=== PATIENT | male | born 1985 ===

== ENCOUNTER 2017-05-03 13:37 | Emergency (ER) | payer OTHER ==
--- NOTE | 2017-05-03 14:20 | C.PDOC ---
History Of Present Illness 31 y/o male presents to ED for suture removal on left forearm s/p lipoma removal at medical clinic on 04/25/17. Patient states area has been mildly erythematous for 2 days. He denies fever, discharge, pain, bleeding. Time Seen by Provider: 05/03/17 13:46 Chief Complaint (Nursing): Suture/Staple Removal History Per: Patient History/Exam Limitations: no limitations Onset/Duration Of Symptoms: Days Ago Location Of Injury: Left: Forearm Severity: Mild Past Medical History Reviewed: Historical Data, Nursing Documentation, Vital Signs Vital Signs: Last Vital Signs Temp 97.7 F 05/03/17 14:25 Pulse 84 05/03/17 14:25 Resp 18 05/03/17 14:25 BP 136/93 H 05/03/17 14:25 Pulse Ox 98 05/03/17 16:20 - Medical History PMH: Asthma Family History: States: No Known Family Hx - Social History Hx Alcohol Use: Yes Hx Substance Use: No Review Of Systems Except As Marked, All Systems Reviewed And Found Negative. Constitutional: Negative for: Fever, Chills Gastrointestinal: Negative for: Nausea, Vomiting, Diarrhea Skin: Negative for: Rash Neurological: Negative for: Weakness, Numbness, Dizziness Physical Exam - Physical Exam Appears: Non-toxic, No Acute Distress Skin: Normal Color, Warm Head: Normacephalic Oral Mucosa: Moist Cardiovascular: Rhythm Regular Respiratory: Normal Breath Sounds, No Rales, No Rhonchi, No Wheezing Extremity: No Tenderness, Capillary Refill (<2 seconds all digits ), No Deformity, Other (Left forearm approx 4cm area with 5 intact sutures, mild surrounding erythema, no fluctuance or induration) Extremity: Bilateral: Atraumatic, Normal ROM Pulses: Left Dorsalis Pedis: Normal, Right Dorsalis Pedis: Normal Neurological/Psych: Oriented x3, Normal Sensation Gait: Steady ED Course And Treatment O2 Sat by Pulse Oximetry: 98 (RA) Pulse Ox Interpretation: Normal Progress Note: 4 peripheral sutures removed, central suture left in order to prevent wound dehiscence. patient given PO Keflex, and steristrip also applied. Patient instructed to return to ED in 48 hours for wound check and removal of final suture. Disposition Counseled Patient/Family Regarding: Diagnosis, Need For Followup, Rx Given - Disposition Referrals: [facility] [Outside] Disposition: HOME/ ROUTINE Disposition Time: 14:25 Condition: STABLE Additional Instructions: RETURN TO ER IN 48 HOURS FOR WOUND CHECK, REMOVAL OF FINAL SUTURE USE MEDICATIONS DIRECTED Prescriptions: Cephalexin [Keflex] 500 mg PO BID #14 capsule Ciprofloxacin [Cipro] 1 tab PO BID #14 tab Ofloxacin Otic 0.3% [Floxin 0.3% Otic Soln] 10 drop GT ONCE #1 bottle Instructions: Stitches Removal (ED), Otitis Externa (ED) Print Language: GREEK - POA Present On Arrival: None - Clinical Impression Clinical Impression: Removal of suture, Cellulitis, Otitis externa - Scribe Statement The provider has reviewed the documentation as recorded by the Jayde Calles All medical record entries made by the Jayde were at my direction and personally dictated by me. I have reviewed the chart and agree that the record accurately reflects my personal performance of the history, physical exam, medical decision making, and the department course for this patient. I have also personally directed, reviewed, and agree with the discharge instructions and disposition.
[2017-05-03 14:48] VITALS: BP 136/93; PULSE 84; RESP 18; TEMP 97.7
[2017-05-03 16:15] VITALS: O2SAT 98
== END 2017-05-03 14:25 | disposition home or self-care (01) ==
LOC: C.ER 13:37
DX: Z48.02 Encounter for removal of sutures (principal); L03.114 Cellulitis of left upper limb; H60.91 Unspecified otitis externa, right ear

== ENCOUNTER 2017-09-21 10:10 | Emergency (ER) | payer OTHER ==
[2017-09-21 10:11] VITALS: BMI 28.8
[2017-09-21 10:25] VITALS: O2SAT 98
[2017-09-21] MEDS ORDERED: Sodium Chloride 0.9% 1,000 ML IV ONE (10:53)
[2017-09-21] MEDS ORDERED: Sodium Chloride 0.9% 1,000 ML ONE (11:04)
[2017-09-21 11:35] LABS: BASO % 0.5 % (0.0-2.0); EOS # 0.1 K/uL (0.0-0.7); EOS % 1.8 % (0.0-4.0); HEMATOCRIT 40.8 % (35.0-51.0); LYMPH # 1.2 K/uL (1.0-4.3); LYMPH % 16.4 % (20.0-40.0); MEAN CORPUSCULAR HEMOGLOBIN 28.4 pg (27.0-31.0); MEAN CORPUSCULAR HGB CONC 34.2 g/dL (33.0-37.0); MEAN PLATELET VOLUME 8.5 fL (7.2-11.7); MONO % 12.6 % (0.0-10.0); NRBC % 0.1 % (0.0-2.0); RED CELL DISTRIBUTION WIDTH 13.4 % (11.5-14.5); WHITE BLOOD COUNT 7.6 K/uL (4.8-10.8)
[2017-09-21 11:36] LABS: URINE BILIRUBIN NEGATIVE (NEGATIVE); URINE BLOOD NEGATIVE (NEGATIVE); URINE COLOR Yellow (YELLOW); URINE GLUCOSE (UA) NORMAL (Normal); URINE KETONE NEGATIVE (NEGATIVE); URINE LEUKOCYTE ESTERASE NEG Leu/uL (Negative); URINE PROTEIN NEGATIVE (NEGATIVE); URINE UROBILINOGEN NORMAL mg/dL (0.2-1.0)
[2017-09-21 11:47] LABS: WBC URINE 1 /hpf (0-5)
[2017-09-21 12:02] LABS: ALB/GLOB RATIO 1.5 (1.0-2.1); ALKALINE PHOSPHATASE 62 U/L (38-126); ALT/SGPT 40 U/L (21-72); AST/SGOT 42 U/L (17-59); BILIRUBIN,TOTAL 0.8 mg/dL (0.2-1.3); BLOOD UREA NITROGEN 9 mg/dL (9-20); CALCIUM 8.5 mg/dl (8.6-10.4); CARBON DIOXIDE 27 mmol/L (22-30); CHLORIDE 103 mmol/L (98-107); GFR AFRICAN-AMERICAN > 60; GLUCOSE,RANDOM 92 mg/dL (75-110); POTASSIUM 4.2 mmol/L (3.6-5.2); SODIUM 138 mmol/L (132-148); TOTAL PROTEIN 6.5 g/dL (6.3-8.3)
--- NOTE | 2017-09-21 12:16 | C.PDOC ---
History Of Present Illness 31 y/o male presents to the ED complaining of nausea, chills, and multiple episodes of diarrhea for 3 days. Patient states that the symptoms started after he ate reheated rice at a [employer]. He denies body aches, hematuria, and dysuria. Time Seen by Provider: 09/21/17 10:33 Chief Complaint (Nursing): Abdominal Pain History Per: Patient Onset/Duration Of Symptoms: Days Current Symptoms Are (Timing): Still Present Location Of Pain/Discomfort: Diffuse Associated Symptoms: Nausea, Diarrhea. denies: Fever, Vomiting, Urinary Symptoms Recent travel outside of the [place]: No Past Medical History Reviewed: Historical Data, Nursing Documentation, Vital Signs Vital Signs: Last Vital Signs Temp 98 F 09/21/17 12:38 Pulse 77 09/21/17 12:38 Resp 18 09/21/17 12:38 BP 116/64 09/21/17 12:38 Pulse Ox 98 09/21/17 12:55 - Medical History PMH: Asthma Surgical History: No Surg Hx Family History: States: No Known Family Hx - Social History Hx Alcohol Use: Yes Hx Substance Use: No - Immunization History Hx Influenza Vaccination: No Review Of Systems Constitutional: Positive for: Chills. Negative for: Fever, Malaise Gastrointestinal: Positive for: Nausea, Diarrhea. Negative for: Vomiting Genitourinary: Negative for: Dysuria, Hematuria Skin: Negative for: Rash Physical Exam - Physical Exam Appears: Non-toxic, No Acute Distress Skin: Normal Color, Warm Head: Atraumatic, Normacephalic Oral Mucosa: Moist Throat: Normal, No Erythema, No Exudate Chest: Symmetrical Cardiovascular: Rhythm Regular Respiratory: Normal Breath Sounds, No Rales, No Wheezing Gastrointestinal/Abdominal: Tenderness (mild diffuse tenderness in abdomen), Other ((-) McBurney's, (-) Miles's) Back: No CVA Tenderness Extremity: Normal ROM Neurological/Psych: Oriented x3, Normal Speech, Normal Cognition ED Course And Treatment - Laboratory Results Result Diagrams: 09/21/17 11:26 09/21/17 11:26 O2 Sat by Pulse Oximetry: 98 (RA) Pulse Ox Interpretation: Normal Medical Decision Making Medical Decision Making: Impression: Nausea Plan: --Bentyl: 10 mg PO --CBC --Labs --Urinalysis Progress: On re-evaluation, patient reports improvement of symptoms, and is in no acute distress. Advised follow up with PMD/clinic. Disposition Counseled Patient/Family Regarding: Studies Performed, Diagnosis, Need For Followup, Rx Given - Disposition Referrals: [facility] [Outside] Disposition: HOME/ ROUTINE Disposition Time: 12:15 Condition: STABLE Additional Instructions: DRINK PLENTY OF CLEAR FLUIDS USE MEDIATION NEEDED FOLLOW UP WITH YOUR DOCTOR IN 1-2 DAYS RETURN TO ER IF SYMPTOMS WORSEN Prescriptions: Dicyclomine [Bentyl] 20 mg PO Q6 PRN #20 tab PRN Reason: ABDOMINAL CRAMPING Instructions: Acute Diarrhea (ED) Forms: [employer] (Zambian), Work Excuse Print Language: CAMBODIAN - POA Present On Arrival: None - Clinical Impression Clinical Impression: Diarrhea - Scribe Statement The provider has reviewed the documentation as recorded by the Jayde Gore Provider Attestation: All medical record entries made by the Jayde were at my direction and personally dictated by me. I have reviewed the chart and agree that the record accurately reflects my personal performance of the history, physical exam, medical decision making, and the department course for this patient. I have also personally directed, reviewed, and agree with the discharge instructions and disposition.
[2017-09-21 12:39] VITALS: BP 116/64; PULSE 77; RESP 18; TEMP 98
== END 2017-09-21 12:39 | disposition home or self-care (01) ==
LOC: C.ER 10:10
DX: R19.7 Diarrhea, unspecified (principal)
CPT/HCPCS: 80053; 81001; 83690; 85025; 96361; 96374; 99284; J7040

== ENCOUNTER 2018-11-16 15:05 | Emergency (ER) | payer OTHER ==
[2018-11-16 15:05] VITALS: BMI 28.8
[2018-11-16 15:16] VITALS: BP 118/83; PULSE 62; RESP 20; TEMP 98; O2SAT 100
[2018-11-16] MEDS: Albuterol-Ipratrop 3 mg / 0.5 (3 ml) UD IH SCH ×2 (15:31→15:53)
[2018-11-16] MEDS ORDERED: Albuterol-Ipratrop 3 mg / 0.5 (3 ml) UD ONE ×2 (15:33→15:55)
--- NOTE | 2018-11-16 16:39 | C.PDOC ---
History Of Present Illness 33 y/o male,w/PMhx of asthma, presents to the ER complaining of fever, cough, sore throat, wheezing,and generalized body aches which have been present for the past 2 days. Patient denies having headache, nausea, vomiting, and diarrhea. HPI: Influenza Time Seen by Provider: 11/16/18 15:15 Chief Complaint: Flu-like Symptoms History Per: Patient Onset/Duration Of Symptoms: Days Risk factors for flu complications: No: adult > 65 years Past Medical History Reviewed: Historical Data, Nursing Documentation, Vital Signs Vital Signs: Last Vital Signs Temp 98 F 11/16/18 15:08 Pulse 62 11/16/18 15:08 Resp 20 11/16/18 15:08 BP 118/83 11/16/18 15:08 Pulse Ox 100 11/16/18 15:08 - Medical History PMH: Asthma Surgical History: No Surg Hx Family History: States: No Known Family Hx - Social History Hx Alcohol Use: Yes Hx Substance Use: No - Immunization History Hx Tetanus Toxoid Vaccination: No Hx Influenza Vaccination: No Hx Pneumococcal Vaccination: No Review Of Systems Except As Marked, All Systems Reviewed And Found Negative. Constitutional: Positive for: Fever, Malaise. Negative for: Chills ENT: Positive for: Throat Pain Cardiovascular: Negative for: Chest Pain Respiratory: Positive for: Cough, Wheezing. Negative for: Shortness of Breath Gastrointestinal: Negative for: Nausea, Vomiting, Diarrhea Neurological: Negative for: Headache Physical Exam - Physical Exam Appears: Other (ill) Skin: Normal Color, Warm, Dry Head: Atraumatic, Normacephalic Eye(s): bilateral: Normal Inspection Nose: Normal Oral Mucosa: Moist Throat: Normal, No Erythema, No Exudate Neck: Supple Chest: Symmetrical Cardiovascular: Rhythm Regular Respiratory: No Rales, No Rhonchi, Wheezing (scattered wheezing) Gastrointestinal/Abdominal: Normal Exam, Soft, No Tenderness, No Guarding, No Rebound Neurological/Psych: Oriented x3, Normal Speech Medical Decision Making Medical Decision Making: Plan: --Albuterol --Motrin PO --Tamiflu PO - ECG O2 Sat by Pulse Oximetry: 100 Disposition Counseled Patient/Family Regarding: Diagnosis, Need For Followup, Rx Given - Disposition Disposition: HOME/ ROUTINE Disposition Time: 16:36 Condition: STABLE Prescriptions: Albuterol 0.083% [Albuterol Sulfate 3 Ml] 3 ml IH TID #24 neb Ibuprofen [Motrin] 600 mg PO TID #15 tab Oseltamivir Cap [Tamiflu] 1 cap PO BID #10 cap Instructions: Flu, Adult (DC) Forms: General Discharge Instructions, [employer] (Tanzanian), Work Excuse - POA Present On Arrival: None - Clinical Impression Clinical Impression: Influenza-like illness, Asthma - Scribe Statement The provider has reviewed the documentation as recorded by the Jayde Gore Provider Attestation: All medical record entries made by the Haileyibcinda were at my direction and personally dictated by me. I have reviewed the chart and agree that the record accurately reflects my personal performance of the history, physical exam, medical decision making, and the department course for this patient. I have also personally directed, reviewed, and agree with the discharge instructions and disposition.
== END 2018-11-16 16:48 | disposition home or self-care (01) ==
LOC: C.ER 15:05
DX: J11.1 Influenza due to unidentified influenza virus with other respiratory manifestations (principal); J45.909 Unspecified asthma, uncomplicated

== ENCOUNTER 2019-01-27 16:41 | Emergency (ER) | payer SELFPAY ==
[2019-01-27 16:41] VITALS: BMI 28.8
[2019-01-27 16:56] VITALS: BP 123/79; PULSE 73; O2SAT 98
[2019-01-27 17:08] VITALS: TEMP 98.3
[2019-01-27] MEDS ORDERED: Albuterol-Ipratrop 3 mg / 0.5 (3 ml) UD ONE ×2 (17:54→18:27)
--- NOTE | 2019-01-27 18:00 | C.PDOC ---
History Of Present Illness 33 y/o male presents to the ED for evaluation of dry, non-productive cough, nasal erythema and sore throat. Patient with questionable history of asthma, states he uses his MDI puffer but with poor technique (2/). Patient denies fever, chills, shortness of breath. Time Seen by Provider: 01/27/19 17:48 Chief Complaint (Nursing): ENT Problem History Per: Patient History/Exam Limitations: no limitations Onset/Duration Of Symptoms: Days Current Symptoms Are (Timing): Still Present Past Medical History Reviewed: Historical Data, Nursing Documentation, Vital Signs Vital Signs: Last Vital Signs Temp 98.3 F 01/27/19 16:51 Pulse 73 01/27/19 16:51 Resp 18 01/27/19 16:51 BP 123/79 01/27/19 16:51 Pulse Ox 98 01/27/19 16:51 - Medical History PMH: Asthma Surgical History: No Surg Hx Family History: States: Unknown Family Hx - Social History Hx Alcohol Use: Yes Hx Substance Use: No - Immunization History Hx Tetanus Toxoid Vaccination: No Hx Influenza Vaccination: No Hx Pneumococcal Vaccination: No Review Of Systems Constitutional: Negative for: Fever, Chills ENT: Positive for: Throat Pain, Other (nasal erythema ) Respiratory: Positive for: Cough. Negative for: Shortness of Breath, Sputum Physical Exam - Physical Exam Appears: Non-toxic, No Acute Distress Skin: Normal Color, Warm, Dry Head: Atraumatic, Normacephalic Eye(s): bilateral: Normal Inspection Ear(s): Bilateral: Normal Nose: Other (nasal erythema ) Oral Mucosa: Moist Throat: Erythema (mild ), No Exudate Chest: Symmetrical, No Deformity, No Tenderness Cardiovascular: Rhythm Regular, No Murmur Respiratory: No Rales, No Rhonchi, Wheezing (scant ) Extremity: Normal ROM Neurological/Psych: Oriented x3, Normal Speech, Normal Cognition ED Course And Treatment O2 Sat by Pulse Oximetry: 98 (on RA ) Pulse Ox Interpretation: Normal Medical Decision Making Medical Decision Making: mild viral syndrome mild asthma exacerbation poor MDI technique instructed Aerochamber Spacer Disposition Doctor Will See Patient In The: Office Counseled Patient/Family Regarding: Studies Performed, Diagnosis - Disposition Referrals: [facility] [Outside] [facility] [Outside] [facility] [Outside] [facility] [Outside] Disposition: HOME/ ROUTINE Disposition Time: 18:00 Condition: GOOD Additional Instructions: Asthma: Prednisone 40 mg daily for 4 more days Duoneb INhaled treatments with TWO ampules of Duoneb 5x/day Albuterol Puffer ALWAYS use with Aerochamber Spacer (plastic tube) Pepcid 20 mg @ night to prevent stomach irritation from the prednisone outpatient follow-up with [facility]. 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 - Scribe Statement The provider has reviewed the documentation as recorded by the Scribe (Kristin Saravia) Provider Attestation: All medical record entries made by the Scribe were at my direction and personally dictated by me. I have reviewed the chart and agree that the record accurately reflects my personal performance of the history, physical exam, medical decision making, and the department course for this patient. I have also personally directed, reviewed, and agree with the discharge instructions and disposition.
[2019-01-27] MEDS ORDERED: Albuterol-Ipratrop 3 mg / 0.5 (3 ml) UD INH STA (18:18)
[2019-01-27 19:08] VITALS: RESP 20
== END 2019-01-27 19:08 | disposition home or self-care (01) ==
LOC: C.ER 16:41
DX: B34.9 Viral infection, unspecified (principal); J45.909 Unspecified asthma, uncomplicated